=== PATIENT | male | born 2005 | race Hispanic/Latino ===

== ENCOUNTER 2024-12-13 20:32 | Emergency (ER) | payer OTHER ==
[~2024-12-13] VITALS: Ht 177.8 cm; Wt 122.5 kg
[~2024-12-13 20:32] MED LIST: DOXYCYCLINE HY100 MG PO; METRONIDAZOLE250 MG PO; NAPROXEN250 MG PO
[2024-12-13 20:57] VITALS: PULSE 87; TEMP 99.2; O2SAT 100
[2024-12-13] MEDS ORDERED: PREDNISONE20 MG PO (20:59)
[2024-12-13] MEDS ORDERED: VENTOLIN HFA18 GM INH (20:59)
[2024-12-13] MEDS ORDERED: AZITHROMYCIN250 MG PO (20:59)
[2024-12-13 21:04] VITALS: RESP 18
== END 2024-12-13 21:07 | disposition home or self-care (01) ==
LOC: ER 20:34
DX: J32.9 Chronic sinusitis, unspecified (principal); R07.0 Pain in throat
CPT/HCPCS: 99282